=== PATIENT | male | born 1955 | race Caucasian/White ===

== ENCOUNTER 2017-06-20 12:32 | Inpatient (IN) | payer OTHER ==
[~2017-06-20] VITALS: Ht 182.9 cm; Wt 81.3 kg
[~2017-06-20 12:32] MED LIST: ASPIR 8181 M1 PO; GLIPIZIDE5 MG PO; LISINOPRIL20 MG PO
[2017-06-20 13:43] LABS: HEMATOCRIT 44.3 % (38.0-50.0); MCH 33.4 PG (29.0-34.0); MCHC 35.9 G/DL (30.0-36.0); MCV 93.1 FL (86-99); MEAN PLAT.VOLUME 10.3 uM^3 (9.0-12.4); PLATELET COUNT 159 K/uL (156-360); RBC DIS.WIDTH-CV 11.9 % (11.8-14.6); RBC DIS.WIDTH-SD 41.3 % (39-53); RED BLOOD COUNT 4.76 M/uL (4.00-5.50); WHITE BLOOD COUNT 18.2 K/uL (4.1-10.2)
[2017-06-20 13:52] LABS: CHLORIDE 87 mEq/L (99-109); POTASSIUM 4.2 mEq/L (3.7-5.4); SODIUM 129 mEq/L (136-147)
[2017-06-20 13:56] LABS: ANION GAP 21 MEQ/L (2-14)
[2017-06-20 13:57] LABS: TOTAL BILIRUBIN 6.1 mg/dL (0.0-1.0)
[2017-06-20 13:58] LABS: ALKALINE PHOSPHATASE 452 IU/L (3-129); GFR ESTIMATE (CALCULATED) > 59 mL/min/
[2017-06-20 13:59] LABS: UREA NITROGEN (BUN) 20 mg/dL (9-23)
[2017-06-20 14:10] LABS: GLUCOSE 503 mg/dL (70-99)
[2017-06-20 16:18] LABS: ADD MIUA? YES; BILIRUBIN NEGATIVE; BLOOD MODERATE; COLOR YELLOW ((YELLOW)); GLUCOSE (STRIP) >=500; KETONES 20; LEUKOCYTES NEGATIVE; NITRITE NEGATIVE; PROTEIN (STRIP) 100; SPECIFIC GRAVITY 1.026 (1.000-1.030)
[2017-06-20 16:26] LABS: BACTERIA RARE /HPF; EPITHELIAL CELLS NONE SEEN /HPF; MUCUS NONE SEEN /LPF; RED BLOOD CELLS 0-5 /HPF (0-5); UCUL ADDED? NO; WHITE BLOOD CELLS 0-5 /HPF (0-5)
[2017-06-20 16:54] LABS: POINT-OF-CARE METER ID UU13113800
[2017-06-20] MEDS ORDERED: ATORVASTATIN CA40 MG PO (18:25)
[2017-06-20] MEDS ORDERED: CILOSTAZOL100 MG PO (18:25)
[2017-06-20] MEDS ORDERED: METOPROLOL TART25 MG PO (18:27)
[2017-06-20 20:34] LABS: POINT-OF-CARE METER ID UU13113800
[2017-06-20 22:59] LABS: POINT-OF-CARE METER ID UU13113675; POINT-OF-CARE USER ID ADMKMM76
[2017-06-21 02:38] VITALS: BP 160/90
[2017-06-21 04:28] VITALS: BP 160/77
[2017-06-21 06:08] LABS: HEMATOCRIT 39.9 % (38.0-50.0); MCH 34.2 PG (29.0-34.0); MCHC 35.8 G/DL (30.0-36.0); MCV 95.5 FL (86-99); MEAN PLAT.VOLUME 10.6 uM^3 (9.0-12.4); PLATELET COUNT 147 K/uL (156-360); RBC DIS.WIDTH-CV 12.5 % (11.8-14.6); RBC DIS.WIDTH-SD 43.4 % (39-53); RED BLOOD COUNT 4.18 M/uL (4.00-5.50); WHITE BLOOD COUNT 13.5 K/uL (4.1-10.2)
[2017-06-21 06:22] LABS: ALKALINE PHOSPHATASE 348 IU/L (3-129); ANION GAP 18 MEQ/L (2-14); CHLORIDE 101 MEQ/L (99-109); GFR ESTIMATE (CALCULATED) > 59 mL/min/; POTASSIUM 4.2 MEQ/L (3.7-5.4); SAMPLE HEMOLYSIS CHECK 0; SAMPLE ICTERIC CHECK 1; SAMPLE LIPEMIA CHECK 0; TOTAL BILIRUBIN 5.2 MG/DL (0.0-1.0); UREA NITROGEN (BUN) 15 mg/dL (9-23)
[2017-06-21 06:25] LABS: GLUCOSE 226 mg/dL (70-99); SODIUM 137 MEQ/L (136-147)
[2017-06-21 06:26] LABS: TROP-I INTERPRETATION NEGATIVE; TROPONIN-I 0.06 ng/mL (0.0-0.30)
[2017-06-21 09:29] VITALS: BP 152/78
[2017-06-21] MEDS ORDERED: HYDROCODON-ACE1 EAC7 PO (10:17)
[2017-06-21 11:53] VITALS: BP 137/72
[2017-06-21 16:03] VITALS: BP 144/77
[2017-06-21 20:34] VITALS: BP 160/80
[2017-06-22 00:46] VITALS: BP 158/78
[2017-06-22 04:19] VITALS: BP 141/80
[2017-06-22 06:30] LABS: HEMATOCRIT 39.4 % (38.0-50.0); MCH 32.9 PG (29.0-34.0); MCHC 34.5 G/DL (30.0-36.0); MCV 95.2 FL (86-99); MEAN PLAT.VOLUME 10.1 uM^3 (9.0-12.4); PLATELET COUNT 156 K/uL (156-360); RBC DIS.WIDTH-CV 12.5 % (11.8-14.6); RBC DIS.WIDTH-SD 43.6 % (39-53); RED BLOOD COUNT 4.14 M/uL (4.00-5.50); WHITE BLOOD COUNT 11.2 K/uL (4.1-10.2)
[2017-06-22 07:13] LABS: ALKALINE PHOSPHATASE 272 IU/L (3-129); DIRECT BILIRUBIN 0.8 mg/dL (0.0-0.3)
[2017-06-22 07:16] LABS: TOTAL BILIRUBIN 1.5 MG/DL (0.0-1.0)
[2017-06-22 07:59] VITALS: BP 157/83
== END 2017-06-22 09:12 | disposition home or self-care (01) | DRG 418 ==
LOC: EME 12:32 → SDC 20:33 → 5EAST 23:11 → 2SOUTH 23:11 → ENRESERV 23:23 → 5EAST 06-21 00:39
PROVIDERS: Nurse Practitioner Family; Physician Assistant; Surgery
DX: K80.00 Calculus of gallbladder with acute cholecystitis without obstruction (principal); E87.1 Hypo-osmolality and hyponatremia; E11.65 Type 2 diabetes mellitus with hyperglycemia; I10 Essential (primary) hypertension; I25.10 Atherosclerotic heart disease of native coronary artery without angina pectoris; Z95.1 Presence of aortocoronary bypass graft; Z79.84 Long term (current) use of oral hypoglycemic drugs; Z79.82 Long term (current) use of aspirin; Z95.2 Presence of prosthetic heart valve
CPT/HCPCS: 74176; 74300; 76705; 80053; 80076; 81003; 82948; 84484; 85027; 88304; 93005; 94799; 99281; 99285; C1769; J0330; J1815; J2405; J2710; J3010; J7030; J7050; J7120; S0020; S0074